=== PATIENT | male | born 1935 | race Caucasian/White ===

== ENCOUNTER 2020-03-31 14:57 | Inpatient (IN) | payer MEDICARE ==
[~2020-03-31] VITALS: Ht 182.9 cm; Wt 93.5 kg
[~2020-03-31 14:57] MED LIST: ASPIRIN EC81 MG PO; B-121000 MC1 OR; LIPITOR20 MG PO; [UNRECOGNIZED DRUG - OTHER] OT
--- NOTE | 2020-03-31 15:08 | NUR ---
PATIENT TO ROOM VIA WHEELCHAIR AND PHYSICIAN NOTIFIED OF PATIENT STATUS
[2020-03-31] MEDS ORDERED: LEVO-T50 MCG PO (15:39)
[2020-03-31] MEDS ORDERED: TRAVATAN Z0.004 % OU (15:41)
[2020-03-31] MEDS ORDERED: TRIAMCINOLON0.11 EX (15:42)
[2020-03-31] MEDS ORDERED: HYDROXYZINE HCL25 M1 PO (15:42)
--- NOTE | 2020-03-31 16:00 | NUR ---
PT RESTING ON STRETCHER; NO S/S OF DISTRESS NOTED; PT AND SPOUSE ADVISED OF CONTINUED WAIT TIME; DENIES ANY NEEDS AT THIS TIME; VSS; WILL CONTINUE TO MONITOR
[2020-03-31 16:04] LABS: HEMATOCRIT 44.5 % (39.0-50.0); HEMOGLOBIN 14.2 g/dl (14.0-18.0); IMMATURE GRANULOCYTES 0.6 % (0.0-5.0); MEAN CELL VOLUME 85.2 fL CALC (80.0-100.0); MEAN CORPUSCULAR HGB 27.2 pG CALC (26.0-32.0); MEAN CORPUSCULAR HGB CONC 31.9 g/dL CAL (32.0-36.0); NEUT# 7.25 thou/uL (1.82-7.42); RED BLOOD COUNT 5.22 mill/uL (4.70-6.10); RED CELL DISTRI WIDTH 13.9 % (11.5-15.5)
[2020-03-31 16:29] LABS: ALKALINE PHOSPHATASE 85 u/l (38-126); ANION GAP 13 (6-22 (CALC)); BILIRUBIN, TOTAL 2.6 mg/dL (0.0-1.4); BUN 21 mg/dL (8-23); BUN/CREATININE RATIO 18 (12-20 (CALC)); C-REACTIVE PROTEIN 3.2 mg/dL (0-0.9); CARBON DIOXIDE 21 mmol/l (22-30); CHLORIDE 103 mmol/l (95-108); CREATININE 1.2 mg/dL (0.7-1.3); GFR 57 ML/MIN (>=60 (CALC)); GFR FOR AFR.AMER. > 60 ML/MIN (>=60 (CALC)); SGOT/AST 32 u/l (19-48); SODIUM 132 mmol/l (137-146); TOTAL PROTEIN 7.2 g/dL (6.3-8.2)
--- NOTE | 2020-03-31 17:00 | NUR ---
PT MEDICATED WITH LOPRESSOR PER MAR FOR HR 120'S AFIB; MONITORING DEVICES IN PLACE; VSS; WILL CONTINUE TO MONITOR
--- NOTE | 2020-03-31 17:30 | NUR ---
PT MEDICATED PER MAR; FOR AFIB 117; PT UPDATED ON POC AND WAIT TIME; MONITORING DEVICES IN PLACE; VSS; WILL CONTINUE TO MONITOR
[2020-03-31 17:46] LABS: INTERNATIONAL NORMALIZED RATIO 1.1 RATIO (0.7-1.3); PROTHROMBIN TIME 11.2 SECONDS (9.0-12.5)
--- NOTE | 2020-03-31 18:00 | NUR ---
AMIODERONE BOLUS STARTED AT THIS TIME; PT AND SPOUSE ADVISED OF POC; DR WHEATLEY AT BEDSIDE TO DISCUSS POC AND PLAN TO ADMIT; BOTH VERBALIZE UNDERSTANDING; WILL CONTINUE TO MONITOR
--- NOTE | 2020-03-31 19:00 | NUR ---
REPORT TO [facility]I GARZA
--- NOTE | 2020-03-31 19:25 | NUR ---
PT RESTING. NAD. VSS. PT IN AFIB AT 94. AMIODARONE INFUSING. IV SITES PRESENT IN BOTH ARMS. INTACT. PT IS ALERT AND ORIENTED.
--- NOTE | 2020-03-31 20:03 | NUR ---
ATTTEMPTED TO CALL REPORT. NURSE IN PROCEDURE, WILL CALL BACK.
--- NOTE | 2020-03-31 21:36 | NUR ---
REPORT CALLED TO [facility] KEY/ICU#6
--- NOTE | 2020-03-31 21:48 | NUR ---
PT TRANSPORTED TO ICU WITHOUT DIFFICULTY.WYATT ANDRADE ON MONITOR. IV CORDARONE INSFUSING. AF RATE IN THE 90'S. NO V-TACH. VSS. UPON ARRIVAL TO UNIT PT AMBULATORY WITH ASSIST TO BED. TOOK CANE AND CLOTHING HOME.
--- NOTE | 2020-03-31 22:00 | NUR ---
RECEIVED INTO ICU 6 FROM ER IA STRETCHER. PATIENT AMBULATED FROM STRETCHER TO BED WITH 1 ASSIST, STANCE AND GAIT UNSTEADY. PATIENT USES A CANE AT HOME TO AMBULATE. C/O WEAKNESS AND FATIGUE PAST FEW DAYS. PLACED ON DIESEL INSTRUCTOR SHOWING AFIB WITH VARIABLE HEART RATE. RESP SHALLOW, SLT BAXTER. BREATH SOUNDS CLEAR. RA O2 SAT 96% IV IN LFA WITH NS AT KVO AND AMIODARONE GTT AT 1 MG/MIN. RAC SALINE LOCK IN PLACE. PATIENT HAS VERY FRAGILE SKIN WITH MULTIPLE AREAS OF BRUISING AND [place]. DISCUSSED PLAN OF CARE. ORIENTED TO SURROUNDINGS. EXPLAINED USE OF CALL MILLER, PATIENT VERBALIZES UNDERSTANDING OF TEACHING. NO NEEDS IDENTIFIED AT THIS TIME. CALL MILLER IN REACH.
[2020-03-31 22:15] VITALS: BP 140/85
[2020-03-31 22:30] VITALS: BP 124/83
[2020-03-31 22:45] VITALS: BP 124/99
[2020-03-31 23:00] VITALS: BP 146/88
[2020-04-01] VITALS (21 sets, daily range): BP systolic 95–153; BP diastolic 50–103
--- NOTE | 2020-04-01 | NUR ---
PATIENT SITTING AT SIDE OF BED. RAC SALINE LOCK BLEEDING AND FOUND DISLODGED. SMALL SKIN TEAR NOTED, XEROFORM GAUZE APPLIED WITH 4X4 AND MARCE TO SECURE. REMINDED PATIENT TO ALL FOR ASSISTANCE. 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 PROVIDE PATIENT WITH INCONTINENCE PAD.
--- NOTE | 2020-04-01 00:10 | NUR ---
AMIODARONE GTT DECREASED TO 0.5 MG/MIN AT THIS TIME PER PROTOCOL.
--- NOTE | 2020-04-01 02:00 | NUR ---
PATIENT FOUND SITTING AT SIDE OF BED AGAIN ATTEMPTING TO GET UP TO USE URINAL. PATIENT UNSTEADY EVEN WITH ASSISTANCE. ASSISTED BACK TO BED. PATIENT AGREES TO TRYING A [place] CATHETER.
--- NOTE | 2020-04-01 04:00 | NUR ---
PATIENT HAS RESTED IN BED WITH EYS CLOSED FOR PAST FEW HOURS. VSS. AFIB ON MONITOR.
[2020-04-01 05:48] LABS: CHOLESTEROL HDL RATIO 2.3 (<4.4 (CALC)); MAGNESIUM 1.8 mg/dL (1.6-2.3)
--- NOTE | 2020-04-01 06:15 | NUR ---
REPORT RECEIVED FROM MIKE MUELLER. CARE ASSUMED.
--- NOTE | 2020-04-01 07:00 | NUR ---
PT RESTING IN BED AWAKE. PT IS ALERT AND ORIENTED X3. SHFIT ASSESSMENT COMPELTED AT THIS TIME. IV PATENT X1. CALL LIGHT IN REACH. BED ALARM IN PLACE FOR PATIENT SAFETY. WILL CONTINUE TO MONITOR.
--- NOTE | 2020-04-01 07:50 | NUR ---
DR BRITO AT BEDSIDE AT THIS TIME.
--- NOTE | 2020-04-01 08:30 | NUR ---
Peripheral IV started. IV access obtained with #20 AutoGuard at Right Forearm with 1 IV stick attempts. Flushes easily with good blood return.
--- NOTE | 2020-04-01 10:00 | NUR ---
PT HAS NOT PEED AT THIS TIME. WILL BLADDER SCAN PATIENT.
--- NOTE | 2020-04-01 11:30 | NUR ---
PT SET UP FOR NOON MEAL AT THIS TIME.
--- NOTE | 2020-04-01 12:30 | NUR ---
DR BRITO AT BEDSIDE AT THIS TIME.
--- NOTE | 2020-04-01 12:43 | NUR ---
LAB AT BEDSIDE AT THIS TIME.
--- NOTE | 2020-04-01 13:00 | NUR ---
SAMSON RANDOLPH APRN AT BEDSIDE AT THIS TIME.
--- NOTE | 2020-04-01 13:15 | NUR ---
NS 500ML BOLUS GIVEN AT THIS TIME.
--- NOTE | 2020-04-01 13:15 | NUR ---
CONSENT OBTAINED FOR MEDICAL RECORDS RELEASE FROM DR MOJICA
--- NOTE | 2020-04-01 13:31 | NUR ---
PT GETTING UP OUT OF BED NOT USING CALL LIGHT. BED ALARM ALARMING. BEER MERCHANT AT BEDSIDE. CALL LIGHT IN REC. VSS ON MONITOR. WILL CONTINUE TO MONITOR.
--- NOTE | 2020-04-01 13:46 | NUR ---
Patient is screened for PT intervention and it is felt he would benefit when medically stable
--- NOTE | 2020-04-01 14:48 | NUR ---
PT RESTING IN BED WATCHING TV. RESP ARE EVEN AND UNLABORED. NO DISTRESS NOTED. VSS ON MONITOR. CALL LIGHT IN REACH. WILL CONTINUE TO MONTIOR.
--- NOTE | 2020-04-01 15:37 | NUR ---
RECORD REQUEST FAXED TO DR MOJICA
--- NOTE | 2020-04-01 15:37 | NUR ---
FLOOR FRAMER AT BEDSIDE TO ASSIST PATIENT WITH HYGIENE CARE AND LINEN CHANGE
--- NOTE | 2020-04-01 17:36 | NUR ---
PT MEDICATED WITH 2100 PACERONE, METOPROLOL, AND ELIQUIS DUE TO IV AMIODARONE COMPLETE AND AFIB TACHY AND ELEVATED BP. [facility]. WILL CONTINUE TO MONITOR.
--- NOTE | 2020-04-01 18:05 | NUR ---
PT SITTING UP IN BED EATING DINNER. RESP ARE EVEN AND UNLABORED. NO DISTRESS NOTED. CALL LIGHT IN REACH. WILL CONTINUE TO MONITOR.
--- NOTE | 2020-04-01 19:30 | NUR ---
awake. denies c/o. oriented to name. knows he's in [place] but unaware he's in the hospital. monitoring engineer shows a fib pvcs hr 110. #20 rfa saline lock. po fluids taken well. voided incont. fall & air/contact precautions cont. bed alarm on.
--- NOTE | 2020-04-01 22:00 | NUR ---
attempting to get oob. confused. reoriented. denies c/o. ecclesiastical worker shows a fib pvcs hr 121.
[2020-04-02] VITALS (16 sets, daily range): BP systolic 104–151; BP diastolic 67–96
--- NOTE | 2020-04-02 00:01 | NUR ---
eyes closed. no distress. pvc monitor shows a fib pvcs hr 96.
--- NOTE | 2020-04-02 02:00 | NUR ---
resting quietly. reps even & unlabored. no apparent distress.
--- NOTE | 2020-04-02 04:00 | NUR ---
eyes closed. bus cleaner shows a fib pvcs hr 96.
--- NOTE | 2020-04-02 05:07 | NUR ---
lab here. blood drawn.
[2020-04-02 05:51] LABS: HEMATOCRIT 42.7 % (39.0-50.0); HEMOGLOBIN 13.3 g/dl (14.0-18.0); MEAN CELL VOLUME 86.8 fL CALC (80.0-100.0); MEAN CORPUSCULAR HGB CONC 31.1 g/dL CAL (32.0-36.0); RED BLOOD COUNT 4.92 mill/uL (4.70-6.10); RED CELL DISTRI WIDTH 13.5 % (11.5-15.5)
[2020-04-02 06:24] LABS: ANION GAP 11 (6-22 (CALC)); BUN 16 mg/dL (8-23); BUN/CREATININE RATIO 18 (12-20 (CALC)); CARBON DIOXIDE 22 mmol/l (22-30); CHLORIDE 102 mmol/l (95-108); CREATININE 0.9 mg/dL (0.7-1.3); GFR > 60 ML/MIN (>=60 (CALC)); GFR FOR AFR.AMER. > 60 ML/MIN (>=60 (CALC)); POTASSIUM 4.3 mmol/l (3.5-5.1); SODIUM 131 mmol/l (137-146)
--- NOTE | 2020-04-02 08:00 | NUR ---
PT SEEN AWAKE, ALERT, ORIENTED X 3. LUNGS CLEAR BUT DIMINISHED, RA. HR IRREGULAR BUT NOT SEEN MORE THAN AROUND 125 IT BOUNCES AROUND. NO SHORTNESS OF BREATH, NO CHEST PAIN.
--- NOTE | 2020-04-02 12:17 | NUR ---
PT CONTINUES BEFORE, RESTS IN THE BED IN NO DISTRESS. HAS CALLED AND WAS UPDATED ON HIS STATUS.
--- NOTE | 2020-04-02 14:42 | NUR ---
PT WAS BATHED PER INCONTINENCE OF BOWEL AND BLADDER, BED LINEN CHANGED.
--- NOTE | 2020-04-02 17:02 | NUR ---
UPDATED ON PT STATUS, QUESTIONS ANSWERED. PT REMAINS AT REST IN THE BED WITHOUT CHANGE IN STATUS.
--- NOTE | 2020-04-02 20:00 | NUR ---
PT RESTING WITH EYES CLOSED; AROUSED EASILY TO VERBAL STIMULI; A/O X3; PT REQUESTING SOMETHING FOR COUGH AND OLSON, WILL NOTIFY MD; IVF INFUSING WELL IN #20 RFA; PT INCONTINENT OF MODERATE AMOUNT OF DENNY URINE; NOAH CARE PROVIDED; CALL MILLER WITHIN REACH; WILL CONTINUE TO MONITOR.
--- NOTE | 2020-04-02 21:30 | NUR ---
PT RESTING WITH EYES CLOSED; AROUSED EASILY TO VERBAL STIMULI; PT MEDICATED FOR C/O COUGH AND OLSON; NO OTHER COMPLAINTS VOICED; CALL MILLER WITHIN REACH; WILL CONTINUE TO MONITOR.
--- NOTE | 2020-04-02 23:37 | NUR ---
PT REPOSITIONS SELF; PT INCONTINENT OF SMALL AMOUNT OF URINE; NOAH CARE PROVIDED; CALL MILLER WITHIN REACH; WILL CONTINUE TO MONITOR.
[2020-04-03] VITALS: BP 132/85
--- NOTE | 2020-04-03 01:26 | NUR ---
PT RESTING WITH EYES CLOSED; NO S/SX OF DISTRESS NOTED; CALL MILLER WITHIN REACH; WILL CONTINUE TO MONITOR.
[2020-04-03 02:00] VITALS: BP 116/77
[2020-04-03 04:00] VITALS: BP 102/70
--- NOTE | 2020-04-03 04:53 | NUR ---
NOAH CARE PROVIDED AT THIS TIME; NO COMPLAINTS OR CONCERNS VOICED; CALL MILLER WITHIN REACH; WILL CONTINUE TO MONITOR.
--- NOTE | 2020-04-03 06:24 | NUR ---
PT RESTING WITH EYES CLOSED; AROUSED EASILY TO VERBAL STIMULI; NO COMPLAINTS VOICED; CALL MILLER WITHIN REACH; WILL CONTINUE TO MONITOR.
--- NOTE | 2020-04-03 06:45 | NUR ---
REPORT RECEIVED FROM TERRANCE MUELLER. CARE ASSUMED AT THIS TIME.
[2020-04-03 07:00] VITALS: BP 161/95
--- NOTE | 2020-04-03 07:20 | NUR ---
PT RESTING IN BED AWAKE. PT IS ALERT AND ORIENTED X3. SHIFT ASSESSMENT COMPLETED AT THIS TIME. IV PATENT X1. CALL LIGHT IN REACH. WILL CONTINUE TO MONITOR.
--- NOTE | 2020-04-03 07:43 | NUR ---
DR BRITO AT BEDSIDE AT THIS TIME.
--- NOTE | 2020-04-03 09:04 | NUR ---
DISCUSSED WITH PATIENT ABOUT PHYSICAL THERAPY CONSULT AND GOING HOME WITH HOME HEALTH. PT VERBALIZED UNDERSTANDING. ASKED TO NOTIFY . PHONED . IS OK WITH [facility].
--- NOTE | 2020-04-03 09:15 | NUR ---
PHONED PT TO LET THEM KNOW THAT CONSULT WAS PENDING DISCHARGE
--- NOTE | 2020-04-03 09:15 | NUR ---
PHONED CASE MANAGEMENT TO NOTIFY THAT PT AND SPOUSE WAS OK WITH [facility]
--- NOTE | 2020-04-03 09:25 | NUR ---
PHYSICAL THERAPY AT BEDSIDE AT THIS TIME.
[2020-04-03 10:00] VITALS: BP 121/72
--- NOTE | 2020-04-03 10:21 | NUR ---
AT BEDSIDE AND UPDATED ON PT RECOMMENDATIONS
[2020-04-03] MEDS ORDERED: CORDARONE/200 MG/TAB PO (10:46)
[2020-04-03] MEDS ORDERED: LOPRESSOR25 MG PO (10:46)
[2020-04-03] MEDS ORDERED: ELIQUIS2.5 MG PO (10:46)
[2020-04-03] MEDS ORDERED: ADLT ASA LOW81 MG PO (10:47)
[2020-04-03] MEDS ORDERED: DOXYCYCL HYC100 MG PO (10:47)
--- NOTE | 2020-04-03 11:35 | NUR ---
IV site discontinued, cath intact. No edema , no redness, voices no discomfort.
--- NOTE | 2020-04-03 11:50 | NUR ---
DISCHARGE INSTRUCTIONS REVIEWD WITH PATIENT AND . BOTH VERBALIZED UNDERSTADNING. PT WILL HAVE LUNCH THEN LEAVE FOR DISCHARGE.
--- NOTE | 2020-04-03 12:05 | NUR ---
Discharge instructions given. Patient verbalizes understanding of same. Discharged in stable condition via Wheelchair to Home with family. All belongings sent with pt.
== END 2020-04-03 12:05 | DRG 308 ==
LOC: ED 14:57 → ED-I 15:28 → ED 15:28 → ED-I 16:40 → ED 19:15 → ICU 19:16 → ED-I 19:16 → ICU 22:12
PROVIDERS: ADMIT Internal Medicine; ATTEND Internal Medicine
PROC: 3E0234Z Introduction of Serum, Toxoid and Vaccine into Muscle, Percutaneous Approach (ICD-10-PCS; principal; 2020-04-02)
DX: I48.19 Other persistent atrial fibrillation (principal); J18.9 Pneumonia, unspecified organism; I47.2 Ventricular tachycardia; I48.92 Unspecified atrial flutter; I10 Essential (primary) hypertension; I25.10 Atherosclerotic heart disease of native coronary artery without angina pectoris; E03.9 Hypothyroidism, unspecified; E78.5 Hyperlipidemia, unspecified; R58 Hemorrhage, not elsewhere classified; Z23 Encounter for immunization; Z86.73 Personal history of transient ischemic attack (TIA), and cerebral infarction without residual deficits; Z87.891 Personal history of nicotine dependence; Z91.81 History of falling; Z20.828 Contact with and (suspected) exposure to other viral communicable diseases
CPT/HCPCS: J0282; J1650; J3475

== ENCOUNTER 2021-07-14 11:05 | Observation (INO) | payer MEDICARE ==
[~2021-07-14] VITALS: Ht 182.9 cm; Wt 89.0 kg
[~2021-07-14 11:05] MED LIST changes: +ADLT ASA LOW81 MG PO; +CORDARONE/200 MG/TAB PO; +DOXYCYCL HYC100 MG PO; +ELIQUIS2.5 MG PO; +HYDROXYZINE HCL25 M1 PO; +LEVO-T50 MCG PO; +LOPRESSOR25 MG PO; +TRAVATAN Z0.004 % OU; +TRIAMCINOLON0.11 EX
[2021-07-14 12:38] LABS: HEMATOCRIT 41.7 % (39.0-50.0); HEMOGLOBIN 13.2 g/dl (14.0-18.0); IMMATURE GRANULOCYTES 0.5 % (0.0-5.0); MEAN CELL VOLUME 90.3 fL CALC (80.0-100.0); MEAN CORPUSCULAR HGB 28.6 pG CALC (26.0-32.0); MEAN CORPUSCULAR HGB CONC 31.7 g/dL CAL (32.0-36.0); NEUT# 4.98 thou/uL (1.82-7.42); RED BLOOD COUNT 4.62 mill/uL (4.70-6.10); RED CELL DISTRI WIDTH 14.6 % (11.5-15.5)
[2021-07-14 12:55] LABS: ALBUMIN 3.7 g/dL (3.2-5.0); ALKALINE PHOSPHATASE 91 u/l (38-126); ANION GAP 10 (6-22 (CALC)); BILIRUBIN, TOTAL 1.4 mg/dL (0.0-1.4); BUN 21 mg/dL (8-23); BUN/CREATININE RATIO 17 (12-20 (CALC)); CARBON DIOXIDE 28 mmol/l (22-30); CHLORIDE 102 mmol/l (95-108); CREATININE 1.3 mg/dL (0.7-1.3); GFR 52 ML/MIN (>=60 (CALC)); GFR FOR AFR.AMER. > 60 ML/MIN (>=60 (CALC)); POTASSIUM 4.3 mmol/l (3.5-5.1); SGOT/AST 21 u/l (19-48); SODIUM 135 mmol/l (137-146); TOTAL PROTEIN 6.6 g/dL (6.3-8.2)
[2021-07-14 17:58] VITALS: BP 146/76
[2021-07-14 19:00] VITALS: BP 140/74
[2021-07-14 21:55] LABS: URINE BILIRUBIN - DIPSTICK NEGATIVE (NEGATIVE); URINE BLOOD DIPSTICK LARGE (NEGATIVE); URINE COLOR YELLOW; URINE GLUCOSE - DIPSTICK NEGATIVE (NEGATIVE); URINE KETONE TRACE mg/dL (NEGATIVE); URINE LEUK ESTERASE NEGATIVE (NEGATIVE); URINE PH 5.5 (4.5-8.0); URINE PROTEIN - DIPSTICK 30 mg/dL (NEG-TRACE); URINE SPECIFIC GRAVITY >=1.030; URINE UROBILINOGEN - DIPSTICK 0.2 E.U./dL (0.2)
[2021-07-14 21:57] LABS: URINE NITRITE - DIPSTICK NEGATIVE (Negative)
[2021-07-14 22:04] LABS: URINE WBC 0-2 WBC/hpf (0-5)
[2021-07-15] VITALS: BP 120/75
[2021-07-15 04:00] VITALS: BP 147/87
[2021-07-15 05:27] LABS: HEMATOCRIT 40.8 % (39.0-50.0); MEAN CELL VOLUME 89.1 fL CALC (80.0-100.0); MEAN CORPUSCULAR HGB 28.4 pG CALC (26.0-32.0); MEAN CORPUSCULAR HGB CONC 31.9 g/dL CAL (32.0-36.0); RED BLOOD COUNT 4.58 mill/uL (4.70-6.10); RED CELL DISTRI WIDTH 14.5 % (11.5-15.5)
[2021-07-15 05:43] LABS: ANION GAP 11 (6-22 (CALC)); BUN 19 mg/dL (8-23); BUN/CREATININE RATIO 18 (12-20 (CALC)); CARBON DIOXIDE 27 mmol/l (22-30); CHLORIDE 100 mmol/l (95-108); CREATININE 1.1 mg/dL (0.7-1.3); GFR > 60 ML/MIN (>=60 (CALC)); GFR FOR AFR.AMER. > 60 ML/MIN (>=60 (CALC)); MAGNESIUM 1.6 mg/dL (1.6-2.3); POTASSIUM 4.2 mmol/l (3.5-5.1); SODIUM 133 mmol/l (137-146)
[2021-07-15 07:33] VITALS: BP 101/78
[2021-07-15 10:47] VITALS: BP 132/71
[2021-07-15] MEDS ORDERED: METOPROL TAR25 MG PO (13:45)
[2021-07-15] MEDS ORDERED: CORDARONE/PACE100 MG PO (13:45)
[2021-07-15] MEDS ORDERED: TYLENOL325 M2 PO (13:46)
[2021-07-15] MEDS ORDERED: CLARITIN10 M1 PO (13:46)
[2021-07-15 15:39] VITALS: BP 132/71
[2021-07-15 19:00] VITALS: BP 135/88
[2021-07-16] VITALS: BP 139/85
[2021-07-16 04:00] VITALS: BP 155/95
[2021-07-16 05:29] LABS: HEMATOCRIT 40.4 % (39.0-50.0); HEMOGLOBIN 13.1 g/dl (14.0-18.0); MEAN CELL VOLUME 87.3 fL CALC (80.0-100.0); MEAN CORPUSCULAR HGB 28.3 pG CALC (26.0-32.0); MEAN CORPUSCULAR HGB CONC 32.4 g/dL CAL (32.0-36.0); RED BLOOD COUNT 4.63 mill/uL (4.70-6.10); RED CELL DISTRI WIDTH 14.3 % (11.5-15.5)
[2021-07-16 05:47] LABS: ANION GAP 9 (6-22 (CALC)); BUN 20 mg/dL (8-23); BUN/CREATININE RATIO 18 (12-20 (CALC)); CARBON DIOXIDE 30 mmol/l (22-30); CHLORIDE 94 mmol/l (95-108); CREATININE 1.2 mg/dL (0.7-1.3); GFR 57 ML/MIN (>=60 (CALC)); GFR FOR AFR.AMER. > 60 ML/MIN (>=60 (CALC)); MAGNESIUM 1.5 mg/dL (1.6-2.3); POTASSIUM 3.7 mmol/l (3.5-5.1); SODIUM 130 mmol/l (137-146)
[2021-07-16 07:15] VITALS: BP 132/84
[2021-07-16 11:11] VITALS: BP 139/87
[2021-07-16 14:55] VITALS: BP 121/79
[2021-07-16 19:00] VITALS: BP 94/62
[2021-07-17 00:06] VITALS: BP 113/74
[2021-07-17 04:06] VITALS: BP 126/81
[2021-07-17 05:47] LABS: HEMATOCRIT 39.7 % (39.0-50.0); HEMOGLOBIN 13.3 g/dl (14.0-18.0); MEAN CELL VOLUME 83.9 fL CALC (80.0-100.0); MEAN CORPUSCULAR HGB 28.1 pG CALC (26.0-32.0); MEAN CORPUSCULAR HGB CONC 33.5 g/dL CAL (32.0-36.0); RED BLOOD COUNT 4.73 mill/uL (4.70-6.10); RED CELL DISTRI WIDTH 14.1 % (11.5-15.5)
[2021-07-17 06:02] LABS: ANION GAP 9 (6-22 (CALC)); BUN 23 mg/dL (8-23); BUN/CREATININE RATIO 21 (12-20 (CALC)); CARBON DIOXIDE 29 mmol/l (22-30); CHLORIDE 94 mmol/l (95-108); CREATININE 1.1 mg/dL (0.7-1.3); GFR > 60 ML/MIN (>=60 (CALC)); GFR FOR AFR.AMER. > 60 ML/MIN (>=60 (CALC)); POTASSIUM 3.7 mmol/l (3.5-5.1); SODIUM 128 mmol/l (137-146)
[2021-07-17 07:42] VITALS: BP 105/68
[2021-07-17 11:26] VITALS: BP 130/82
[2021-07-17] MEDS ORDERED: ZITHROMAX250 MG PO (11:30)
[2021-07-17] MEDS ORDERED: OMNICEF300 MG PO (11:30)
[2021-07-17 16:19] VITALS: BP 115/69
== END 2021-07-17 16:26 ==
LOC: ED 11:05 → ED-I 16:45 → ED 17:05 → MS2 17:06
PROVIDERS: Family Medicine; Nurse Practitioner; ADMIT Hospitalist; ATTEND Hospitalist
DX: J18.9 Pneumonia, unspecified organism (principal); J44.0 Chronic obstructive pulmonary disease with (acute) lower respiratory infection; I10 Essential (primary) hypertension; I48.0 Paroxysmal atrial fibrillation; I25.10 Atherosclerotic heart disease of native coronary artery without angina pectoris; E78.5 Hyperlipidemia, unspecified; E03.9 Hypothyroidism, unspecified; R11.2 Nausea with vomiting, unspecified; G25.2 Other specified forms of tremor; R26.89 Other abnormalities of gait and mobility; Z86.73 Personal history of transient ischemic attack (TIA), and cerebral infarction without residual deficits; Z87.891 Personal history of nicotine dependence; Z20.822 Contact with and (suspected) exposure to COVID-19
CPT/HCPCS: A9579; G0378; J3475

== ENCOUNTER 2021-11-10 16:45 | Emergency (ER) | payer MEDICARE ==
[~2021-11-10] VITALS: Ht 182.9 cm; Wt 93.2 kg
[2021-11-10] VITALS (8 sets, daily range): BP systolic 116–150; BP diastolic 71–88
[~2021-11-10 16:45] MED LIST changes: +CLARITIN10 M1 PO; +CORDARONE/PACE100 MG PO; +METOPROL TAR25 MG PO; +OMNICEF300 MG PO; +TYLENOL325 M2 PO; +ZITHROMAX250 MG PO
[2021-11-10 18:16] LABS: HEMATOCRIT 39.9 % (39.0-50.0); HEMOGLOBIN 12.8 g/dl (14.0-18.0); IMMATURE GRANULOCYTES 0.2 % (0.0-5.0); MEAN CELL VOLUME 90.7 fL CALC (80.0-100.0); MEAN CORPUSCULAR HGB 29.1 pG CALC (26.0-32.0); MEAN CORPUSCULAR HGB CONC 32.1 g/dL CAL (32.0-36.0); NEUT# 2.65 thou/uL (1.82-7.42); RED BLOOD COUNT 4.4 mill/uL (4.70-6.10); RED CELL DISTRI WIDTH 15.5 % (11.5-15.5)
[2021-11-10 18:34] LABS: ALBUMIN 3.3 g/dL (3.2-5.0); ALKALINE PHOSPHATASE 83 u/l (38-126); ANION GAP 8 (6-22 (CALC)); BILIRUBIN, TOTAL 0.9 mg/dL (0.0-1.4); BUN 19 mg/dL (8-23); BUN/CREATININE RATIO 16 (12-20 (CALC)); CARBON DIOXIDE 31 mmol/l (22-30); CHLORIDE 102 mmol/l (95-108); CREATININE 1.2 mg/dL (0.7-1.3); GFR 57 ML/MIN (>=60 (CALC)); GFR FOR AFR.AMER. > 60 ML/MIN (>=60 (CALC)); SGOT/AST 17 u/l (19-48); SODIUM 137 mmol/l (137-146); TOTAL PROTEIN 6.2 g/dL (6.3-8.2)
[2021-11-10] MEDS ORDERED: TESSALON PERLE100 MG PO (20:24)
[2021-11-10] MEDS ORDERED: ZPAK PO (20:24)
[2021-11-10] MEDS ORDERED: VENTOLIN HFA IN (20:24)
[2021-11-10] MEDS ORDERED: MEDDOSEPAK PO (20:24)
== END 2021-11-10 21:13 | disposition home or self-care (01) ==
LOC: ED 16:45
PROVIDERS: Family Medicine
DX: J44.1 Chronic obstructive pulmonary disease with (acute) exacerbation (principal); I48.91 Unspecified atrial fibrillation; I25.10 Atherosclerotic heart disease of native coronary artery without angina pectoris; E78.5 Hyperlipidemia, unspecified; Z86.73 Personal history of transient ischemic attack (TIA), and cerebral infarction without residual deficits; Z20.822 Contact with and (suspected) exposure to COVID-19

== ENCOUNTER 2022-10-27 12:35 | Inpatient (IN) | payer MEDICARE ==
[~2022-10-27] VITALS: Ht 182.9 cm; Wt 90.2 kg
[2022-10-27] VITALS (24 sets, daily range): BP systolic 42–245; BP diastolic 25–202
[~2022-10-27 12:35] MED LIST changes: +MEDDOSEPAK PO; +TESSALON PERLE100 MG PO; +VENTOLIN HFA IN; +ZPAK PO
--- NOTE | 2022-10-27 12:56 | NUR ---
PT COMES IN VIA EMS FOR AFIB RVR. PT HOOKED UP TO MONITOR, EKG PERFORMED, MD AWARE.
[2022-10-27 13:12] LABS: BASO% 0.2 % (0-3); EOS% 0.2 % (0-8); HEMATOCRIT 43.8 % (39.0-50.0); HEMOGLOBIN 13.9 g/dl (14.0-18.0); IMMATURE GRANULOCYTES 0.4 % (0.0-5.0); LYMPH% 3.5 % (15-41); MEAN CELL VOLUME 86.4 fL CALC (80.0-100.0); MEAN CORPUSCULAR HGB 27.4 pG CALC (26.0-32.0); MEAN CORPUSCULAR HGB CONC 31.7 g/dL CAL (32.0-36.0); MONO% 4.8 % (2-13); NEUT# 8.56 thou/uL (1.82-7.42); NEUT% 90.9 % (42-76); RED BLOOD COUNT 5.07 mill/uL (4.70-6.10)
[2022-10-27 13:28] LABS: ALBUMIN 3.9 g/dL (3.2-5.0); ALKALINE PHOSPHATASE 91 u/l (38-126); ANION GAP 10 (6-22 (CALC)); BUN 25 mg/dL (8-23); BUN/CREATININE RATIO 23 (12-20 (CALC)); CARBON DIOXIDE 24 mmol/l (22-30); CHLORIDE 104 mmol/l (95-108); CREATININE 1.1 mg/dL (0.7-1.3); GFR FOR AFR.AMER. > 60 ML/MIN (>=60 (CALC)); GFR OTHER RACES > 60 ML/MIN (>=60 (CALC)); POTASSIUM 4.2 mmol/l (3.5-5.1); SGOT/AST 22 u/l (19-48); SODIUM 134 mmol/l (137-146); TOTAL PROTEIN 6.3 g/dL (6.3-8.2)
--- NOTE | 2022-10-27 13:30 | NUR ---
Reassessment of patient completed. No distress noted.
[2022-10-27 13:37] LABS: BILIRUBIN, TOTAL 2.4 mg/dL (0.2-1.3)
--- NOTE | 2022-10-27 14:15 | NUR ---
Reassessment of patient completed. No distress noted.
--- NOTE | 2022-10-27 15:30 | NUR ---
Reassessment of patient completed. No distress noted.
--- NOTE | 2022-10-27 16:21 | NUR ---
Reassessment of patient completed. No distress noted. SPOKE WITH MED SURG. AWAITING BED FOR ADMISSION. PT AWARE
--- NOTE | 2022-10-27 16:52 | NUR ---
CONDOM CATHETER IN PLACE. LINEN AND GOWN CHANGE
--- NOTE | 2022-10-27 17:21 | NUR ---
Reassessment of patient completed. No distress noted.
--- NOTE | 2022-10-27 18:40 | NUR ---
PT BROUGHT TO ROOM 281 FOR ADMISSION , ALERT/ORIENTED X3, RUNNING NEW SET OF AFIB HEART RATE IN THE 70'S, CARDIZEM GTT AT 2.5 MG. DENIES ANY COMPLAINT. PT DOES HAVE COVID HAS A CONDOM CATHETER IN PLACE.
--- NOTE | 2022-10-27 20:25 | NUR ---
pt repositioned in bed, male purewick placed, pt encouraged to call for assist, bed alarm on
--- NOTE | 2022-10-27 22:30 | NUR ---
pt denies needs, no distress or SOB, HR controlled around 100 with cardizem at 10
[2022-10-28] VITALS (11 sets, daily range): BP systolic 107–149; BP diastolic 64–100
--- NOTE | 2022-10-28 00:06 | NUR ---
pt with no changes, denies needs
--- NOTE | 2022-10-28 01:40 | NUR ---
pt awoke with some mild confusion, removing leads and gown, also had small smear of stool, re-oriented quickly then stood at bedside with minimal assist for bath and linen change, steady, new purewick placed
--- NOTE | 2022-10-28 03:40 | NUR ---
pt resting, cardizem continues at 5, HR 70's to 90's, continues A-fib
[2022-10-28 04:36] LABS: BASO% 0.1 % (0-3); HEMOGLOBIN 12.7 g/dl (14.0-18.0); IMMATURE GRANULOCYTES 1.6 % (0.0-5.0); LYMPH% 6.4 % (15-41); MEAN CELL VOLUME 86.4 fL CALC (80.0-100.0); MEAN CORPUSCULAR HGB 27.4 pG CALC (26.0-32.0); MEAN CORPUSCULAR HGB CONC 31.8 g/dL CAL (32.0-36.0); MONO% 2.4 % (2-13); NEUT# 6.58 thou/uL (1.82-7.42); NEUT% 89.5 % (42-76); RED BLOOD COUNT 4.63 mill/uL (4.70-6.10); RED CELL DISTRI WIDTH 14.3 % (11.5-15.5)
[2022-10-28 05:08] LABS: ALBUMIN 3.3 g/dL (3.2-5.0); ALKALINE PHOSPHATASE 64 u/l (38-126); ANION GAP 8 (6-22 (CALC)); BUN 24 mg/dL (8-23); BUN/CREATININE RATIO 24 (12-20 (CALC)); C-REACTIVE PROTEIN 3.2 mg/dL (0-0.9); CALCULATED LDLCHOLESTEROL 57 mg/dL (62-129 (CALC)); CARBON DIOXIDE 27 mmol/l (22-30); CHLORIDE 101 mmol/l (95-108); CHOLESTEROL HDL RATIO 2.6 (<4.4 (CALC)); GFR FOR AFR.AMER. > 60 ML/MIN (>=60 (CALC)); GFR OTHER RACES > 60 ML/MIN (>=60 (CALC)); HDL CHOLESTEROL 42 mg/dL (39.0-59.0); MAGNESIUM 1.7 mg/dL (1.6-2.3); POTASSIUM 4.2 mmol/l (3.5-5.1); SGOT/AST 28 u/l (19-48); SODIUM 132 mmol/l (137-146); TOTAL CHOLESTEROL 107 mg/dl (0-199); TOTAL PROTEIN 5.7 g/dL (6.3-8.2); TOTAL TRIGLYCERIDES 41 mg/dl (0-149); VLDL CHOLESTROL 8 mg/dl (0-38 (CALC))
[2022-10-28 05:16] LABS: BILIRUBIN, TOTAL 1.1 mg/dL (0.2-1.3)
--- NOTE | 2022-10-28 06:18 | NUR ---
pt with some mild disorientation this AM, otherwise assessment unchanged, cardizem continues at 5 with HR well controlled
--- NOTE | 2022-10-28 10:27 | NUR ---
PT SEEN AWAKE, ALERT, ORIENTED X 3. PT STATES THAT HE IS TOO WEAK TO STAND, AND WILL NOT ATTEMPT TO GET OOB WHILE HERE. PT WITH COVID, BUT IS NOT SYMPTOMATIC. CARDIZEM DRIP IN PLACE AT 5 MG/HR, HR 70 AND IRREGULAR.
--- NOTE | 2022-10-28 11:41 | NUR ---
BOOKED A CARDIOLOGY CONSULT WITH DR GARRISON VIA THE TELEHEALTH JUDIT AT 1140 HRS.
--- NOTE | 2022-10-28 11:59 | NUR ---
CARDIZEM DRIP TURNED OFF PER SATISFACTORY RATE CONTROL, WILL MONITOR.
--- NOTE | 2022-10-28 15:53 | NUR ---
PT REMAINS AFIB, HR 70s. CARDIZEM HAS BEEN OFF FOR SOME TIME. PT'S VISITED EARLIER.
--- NOTE | 2022-10-28 20:18 | NUR ---
pt AO, continues in A-fib with controlled rate, denies pain/SOB, on RA with no distress or SOB with exertion, stood at bedside with steady gait then back to bed
--- NOTE | 2022-10-28 22:30 | NUR ---
pt with no changes or SOB, mild confusion/forgetfulness, bed alarm on
[2022-10-29 00:01] VITALS: BP 127/71
--- NOTE | 2022-10-29 00:14 | NUR ---
pt awake, some confusion, disoriented to place and situation, repositioned and reoriented
--- NOTE | 2022-10-29 01:40 | NUR ---
pt set off bed alarm, he was climbing out of bed and removing EKG leads, stated he did not know where he was, pt stood at bedside and brief changed, steady, back to bed and covered, reoriented and encouraged to sleep
[2022-10-29 02:01] VITALS: BP 135/87
[2022-10-29 04:00] VITALS: BP 144/84
--- NOTE | 2022-10-29 04:40 | NUR ---
pt got up to side of bed, set off bed alarm, he was disoriented, pt then re-oriented and back to bed, repositioned and now watching AM news
[2022-10-29 05:28] LABS: BASO% 0.1 % (0-3); HEMATOCRIT 39.7 % (39.0-50.0); HEMOGLOBIN 12.7 g/dl (14.0-18.0); IMMATURE GRANULOCYTES 0.7 % (0.0-5.0); LYMPH% 7.4 % (15-41); MEAN CELL VOLUME 85.6 fL CALC (80.0-100.0); MEAN CORPUSCULAR HGB 27.4 pG CALC (26.0-32.0); MONO% 7.1 % (2-13); NEUT# 10.22 thou/uL (1.82-7.42); NEUT% 84.7 % (42-76); RED BLOOD COUNT 4.64 mill/uL (4.70-6.10); RED CELL DISTRI WIDTH 14.2 % (11.5-15.5)
[2022-10-29 05:44] LABS: ALBUMIN 3.1 g/dL (3.2-5.0); ALKALINE PHOSPHATASE 64 u/l (38-126); ANION GAP 9 (6-22 (CALC)); BUN 27 mg/dL (8-23); BUN/CREATININE RATIO 30 (12-20 (CALC)); CARBON DIOXIDE 22 mmol/l (22-30); CHLORIDE 104 mmol/l (95-108); CREATININE 0.9 mg/dL (0.7-1.3); GFR FOR AFR.AMER. > 60 ML/MIN (>=60 (CALC)); GFR OTHER RACES > 60 ML/MIN (>=60 (CALC)); MAGNESIUM 1.8 mg/dL (1.6-2.3); SGOT/AST 40 u/l (19-48); SODIUM 131 mmol/l (137-146); TOTAL PROTEIN 5.5 g/dL (6.3-8.2)
[2022-10-29 05:45] LABS: BILIRUBIN, TOTAL 0.6 mg/dL (0.2-1.3)
[2022-10-29 06:00] VITALS: BP 136/69; BP 136/89
--- NOTE | 2022-10-29 06:11 | NUR ---
pt does continue with some mild confusion and impulsiveness, wants to get out of bed "to go down for breakfast", attempts made to re-orient pt
--- NOTE | 2022-10-29 07:00 | NUR ---
REPORT RECEIVED FROM RECLAIMER -PT SEEN RESTING IN BED WITH EYES CLOSED - CALL LIGHT IN REACH
--- NOTE | 2022-10-29 09:40 | NUR ---
PT DENIES ANY PAIN OR NEEDS - PT DOES NOT WANT ELIQUIS THAT MD RECOMENDED - NOTIFIED TRUCK HEADLIGHT ASSEMBLER - CALL LIGHT IN REACH
--- NOTE | 2022-10-29 09:45 | NUR ---
OF NOW 4146 I HAVE NO CARDIAC STRIPS TO REVIEW/CHART - ED NOTIFIED TWICE -WILL CHART WHEN I RECEIVE
[2022-10-29 10:02] VITALS: BP 138/91
--- NOTE | 2022-10-29 10:33 | NUR ---
RECEIVED CARDIAC STRIP FROM 0800 NOW AT 1034 - WILL CHART I NOTIFED ED CONCERNING PT HEART RATE, I NOTICED THE PT WAS TACHY IN THE 200'S - I ASSESSD PT AND CHANGED LEADS - STILL READING TACHY ON THE MONITOR - AT 1023 I CALLED SARA IN ER TO VERIFY PT RATE, HE SAID FOR 14 SECONDS PT WAS TACHY IN 200'S BUT HE BELIEVES ITS ARTIFACT - I ASKED HIM TO PLS NOTIFY ME NEXT TIME TO ATLEAST CHECK THE LEADS I WOULD LIKE TO BE SURE SINCE I CANNOT MANIPULATE MONITOR AND REVIEW MYSELF - HE AGREED - WILL CONT TO MONITOR PT
[2022-10-29 11:00] VITALS: BP 130/70
--- NOTE | 2022-10-29 11:48 | NUR ---
PT DENIES ANY PAIN OR NEEDS - NO S/S DISTRESS - PT STATES HES READY FOR DC PENDING MD ORDER - CALL LIGHT IN REACH
--- NOTE | 2022-10-29 13:13 | NUR ---
PT UP TO CHAIR - DENIES ANY NEEDS OR PAIN - CALL LIGHT IN REACH
[2022-10-29] MEDS ORDERED: VIBRAMYCIN100 M2 PO (13:14)
--- NOTE | 2022-10-29 13:50 | NUR ---
REVIEWED DC INSTRUCTIONS WITH PATIENT AND SPOUSE - BOTH VERBALIZED UNDERSTANDING - PIV REMOVED AND COBAN AND GAIVANIAE APPLIED - PT NEW MED SENT TO PT PREFERRED PHARMACY - PT LEFT VIA WHEELCHAIR IN STABLE CONDITION WITH ALL PERSONAL BELONGINGS.
[2022-10-29] MEDS ORDERED: DEXAMETHASON6 MG PO (15:13)
== END 2022-10-29 13:50 | disposition home or self-care (01) | DRG 177 ==
LOC: ED 12:35 → ED-I 15:00 → ED 15:12 → MS2 15:13
PROVIDERS: Family Medicine; Nurse Practitioner Family; ADMIT Internal Medicine; ATTEND Internal Medicine
DX: U07.1 COVID-19 (principal); J12.82 Pneumonia due to coronavirus disease 2019; I48.0 Paroxysmal atrial fibrillation; I10 Essential (primary) hypertension; I25.10 Atherosclerotic heart disease of native coronary artery without angina pectoris; E78.5 Hyperlipidemia, unspecified; Z86.73 Personal history of transient ischemic attack (TIA), and cerebral infarction without residual deficits; E03.9 Hypothyroidism, unspecified; Z87.891 Personal history of nicotine dependence; Z79.82 Long term (current) use of aspirin
CPT/HCPCS: J1650